=== PATIENT | female | born 1955 | race African-American/Black ===

== ENCOUNTER 2020-04-14 14:10 | Emergency (ER) | payer MEDICAID ==
[~2020-04-14] VITALS: Ht 167.6 cm; Wt 116.0 kg
[2020-04-14] MEDS ORDERED: ENALAPRIL 5MG TABLET PO SCH (15:15)
[2020-04-14 15:41] LABS: CHLORIDE 99 mEq/L (98-107)
[2020-04-14 16:24] LABS: BASOPHILS % 1.3 % (0.0-2.0); EOSINOPHILS % 1.2 % (0.0-5.0); HEMATOCRIT. 41.8 % (36.0-48.0); HEMOGLOBIN. 14.2 g/dL (12.0-16.0); LYMPHOCYTES % 32.2 % (20.0-50.0); MEAN CORPUSCULAR HEMOGLOBIN 30.9 pg (28.0-32.0); MEAN CORPUSCULAR VOLUME 91.2 fL (81.0-99.0); MEAN PLATELET VOLUME 9.3 fl (7.4-10.4); MONOCYTES % 6.1 % (2.0-8.0); NEUTROPHILS % 59.2 % (40.0-76.0); PLATELET 282 x1000/uL (130-400); RED BLOOD CELL COUNT 4.58 mill/uL (4.2-5.4)
[2020-04-14 19:14] VITALS: BP 153/95
[2020-04-14] MEDS ORDERED: ENAL5TAB21 MT (19:16)
[2020-04-14] MEDS ORDERED: METF-414 PO (19:16)
== END 2020-04-14 19:33 | disposition home or self-care (01) ==
LOC: ER 14:10
DX: I16.0 Hypertensive urgency (principal); E11.65 Type 2 diabetes mellitus with hyperglycemia; M19.90 Unspecified osteoarthritis, unspecified site; F17.210 Nicotine dependence, cigarettes, uncomplicated; Z91.14 Patient's other noncompliance with medication regimen
CPT/HCPCS: 36415; 70450; 71045; 80053; 84484; 85025; 93005; 99285; Z7610